=== PATIENT | male | born 1965 | race American Indian/Alaskan Native ===

== ENCOUNTER 2021-12-20 10:04 | Outpatient (CLI) | payer OTHER ==
--- NOTE | 2021-12-20 13:22 | XRay Report ---
LUMBAR SPINE 3 VIEWS INDICATION / CLINICAL INFORMATION: BACK PAIN. COMPARISON: None available. FINDINGS: VERTEBRAE: No acute fracture. No significant malalignment. DISC SPACES / FACET JOINTS:There is [id number] degenerative disc disease at L3-L4 and L4-L5. PARASPINAL SOFT TISSUES:Calcific atherosclerosis. ADDITIONAL FINDINGS: None. Signer Name: Yaya Chiang DO Signed: 12/20/2021 1:18 PM Workstation Name: [id number]
--- NOTE | 2021-12-20 13:32 | XRay Report ---
BILATERAL KNEE 3 VIEW(S) INDICATION / CLINICAL INFORMATION: BILATERAL KNEE PAIN COMPARISON: None available. FINDINGS: BONES / JOINT(S): No acute fracture or subluxation. No significant arthritis. SOFT TISSUES: No significant abnormality. ADDITIONAL FINDINGS: None. IMPRESSION: 1. No acute findings. Signer Name: Tobias Tristan MD Signed: 12/20/2021 1:27 PM Workstation Name: [id number]
--- NOTE | 2021-12-20 13:37 | XRay Report ---
BILATERAL HANDS 3 VIEWS INDICATION: Bilateral hand pain. COMPARISON: None. IMPRESSION: No acute osseous abnormality or bone lesion. Mild osteoarthritic joint space narrowing is identified at the right first metacarpophalangeal joint and left first and fourth metacarpophalang eal joints. No erosive joint pathology is appreciated. The soft tissues are unremarkable. BILATERAL FEET 3 VIEWS INDICATION: BILATERAL FOOT PAIN. COMPARISON: None. IMPRESSION: No acute osseous abnormality or bone lesion. Moderate to severe osteoarthritic joint sp angelo narrowing is identified at the first metatarsophalangeal joints bilaterally. The remaining joint spaces are unremarkable. The soft tissues are unremarkable. Signer Name: Hayden Sotomayor Jr, MD Signed: 12/20/2021 1:32 PM Workstation Name: [id number]
== END 2021-12-20 10:05 | disposition home or self-care (01) ==
LOC: XRAY 10:04
PROVIDERS: ATTEND Internal Medicine
DX: M19.071 Primary osteoarthritis, right ankle and foot (principal); M19.072 Primary osteoarthritis, left ankle and foot; M19.042 Primary osteoarthritis, left hand; M19.041 Primary osteoarthritis, right hand; M47.816 Spondylosis without myelopathy or radiculopathy, lumbar region; M25.562 Pain in left knee; M25.561 Pain in right knee
CPT/HCPCS: 72100